=== PATIENT | female | born 1945 | race Caucasian/White ===

== ENCOUNTER 2018-10-02 07:19 | Day surgery (SDC) | payer OTHER ==
[2018-10-02] MEDS ORDERED: KETOROLAC 30 MG/ML VIAL ONE (10:01)
[2018-10-02] MEDS ORDERED: LIDOCAINE 2% 100 MG/5 ML UJET TP ONE (10:01)
== END 2018-10-02 11:10 | disposition home or self-care (01) ==
LOC: MDS 07:19 → MMU 07:22 → MDS 11:10
PROVIDERS: ATTEND Internal Medicine Gastroenterology
DX: Z12.11 Encounter for screening for malignant neoplasm of colon (principal); D12.2 Benign neoplasm of ascending colon; K64.8 Other hemorrhoids; K57.30 Diverticulosis of large intestine without perforation or abscess without bleeding; Z98.51 Tubal ligation status; E78.5 Hyperlipidemia, unspecified; E66.3 Overweight; Z98.890 Other specified postprocedural states; Z90.49 Acquired absence of other specified parts of digestive tract; Z79.82 Long term (current) use of aspirin; Z79.899 Other long term (current) drug therapy; Z80.0 Family history of malignant neoplasm of digestive organs
CPT/HCPCS: 45385; J1885